=== PATIENT | male | born 1995 | race Caucasian/White ===

== ENCOUNTER 2017-03-21 22:36 | Emergency (ER) | payer BC ==
[~2017-03-21] VITALS: Ht 172.7 cm; Wt 82.8 kg
[2017-03-21 22:47] VITALS: BP 116/67
== END 2017-03-22 01:38 | disposition home or self-care (01) ==
LOC: EME 22:36
PROC: 0HQ1XZZ Repair Face Skin, External Approach (ICD-10-PCS; principal; 2017-03-21)
DX: S01.511A Laceration without foreign body of lip, initial encounter (principal); W18.30XA Fall on same level, unspecified, initial encounter; Y93.41 Activity, dancing; F10.99 Alcohol use, unspecified with unspecified alcohol-induced disorder
CPT/HCPCS: 99281; 99284